=== PATIENT | male | born 2005 | race Caucasian/White ===

== ENCOUNTER 2025-05-13 16:37 | Emergency (ER) | payer OTHER, SELFPAY ==
[2025-05-13 16:45] VITALS: BP 106/75; PULSE 106; RESP 18; TEMP 36.3; O2SAT 98; BMI 25.0
--- NOTE | 2025-05-13 16:50 | CRLHL7_ITS ---
For Patients: As a result of the Cures Act, medical imaging exams and procedure reports are released immediately into your electronic medical record. You may view this report before your referring provider. If you have questions, please contact your health care provider. Indication: Right hand dislocation. Technique: Two views of the right hand. Comparison: None. Findings: Significant dislocation of the right MCP with the 1st proximal phalanx projecting radial. Displaced sesamoids. The thumb interphalangeal joint is unremarkable. The remainder of the right hand is unremarkable. Impression: 1. Dislocation of the right 1st metacarpophalangeal joint. Dictated by Rob Rios MD @ 05/13/2025 5:14:00 PM (Electronically Signed)
--- NOTE | 2025-05-13 17:02 | ED.GENADULT ---
HPI - General Adult General Date Seen: 05/13/25 Chief complaint: Extremity Pain/Injury, Upper Stated complaint: Right Hand Injury Time Seen by Provider: 05/13/25 17:02 History of Present Illness HPI narrative: Patient is a very pleasant 19-year-old here with his girlfriend after an injury he sustained when he ran into the wall while playing baseball. He injured his right thumb and it is notably deformed. He does not complain of numbness or other loss of function, no other injuries or complaints. General health is good. Related Data Home Medications ?Medication ?Instructions ?Recorded ?Confirmed No Known Home Medications 05/13/25 05/13/25 Allergies Allergy/AdvReac Type Severity Reaction Status Date / Time No Known Drug Allergies Allergy Verified 05/13/25 16:44 Exam Narrative: Exam Narrative: Vital signs reviewed In general, alert, nontoxic young man. Extremities: Examination of the right hand shows an obviously deformed thumb at the MCP joint with significant shortening. Distal CMS is intact. Const: Vital Signs, click to edit/add: Vital Signs - 24 hr 05/13/25 16:45 Temperature 97.3 F L Pulse Rate [Pulse Oximeter] 106 H Respiratory Rate 18 Blood Pressure [Le ft Upper Arm] 106/75 Pulse Oximetry 98 Oxygen Delivery Me thod Room Air Course Course ED Course: X-rays of the right hand by my review show a dislocation with significant shortening and overriding of the proximal phalanx over the metacarpal. No obvious fracture. Radiology report reviewed as well and they read this as a dislocation without fracture. Discussed options for him and trying to reduce this, we elected to put in a digital block which I did. He had good pain relief with that overall although not complete. I did end up giving him an additional 4 mg of IM morphine as well. I was not able to get enough traction to reduce the phalanx over the metacarpal. I did consult with Orthopedics, they felt that this likely was not reducible as a closed reduction and recommended consultation with a hand surgeon. I talked with [facility], orthopedics on-call there happens to be their hand surgeon and so they accepted him for transfer there to have him evaluated to decide whether open reduction is needed or whether they are able to manage this otherwise. Patient is here with his girlfriend and his girlfriend's mom, his mom is out of town. His girlfriend's mom will drive him up to [place] and they are comfortable with that plan. Offered splinting but he says he does not have any pain right now. Vital Signs Vital signs: Initial Vital Signs Temperature 97.3 F L 05/13/25 16:45 Temperature Source Temporal Artery Scan 05/13/25 16:45 Pulse Rate 106 H 05/13/25 16:45 Respiratory Rate 18 05/13/25 16:45 Blood Pressure 106/75 05/13/25 16:45 Blood Pressure Mean 85 05/13/25 16:45 Blood Pressure Position Sitting 05/13/25 16:45 Pulse Oximetry 98 05/13/25 16:45 Oxygen Delivery Method Room Air 05/13/25 16:45 Vital Signs Temperature 97.3 F L 05/13/25 16:45 Pulse Rate 106 H 05/13/25 16:45 Respiratory Rate 18 05/13/25 16:45 Blood Pressure 106/75 05/13/25 16:45 Pulse Oximetry 98 05/13/25 16:45 Oxygen Delivery Method Room Air 05/13/25 16:45 Temperature 97.3 F L 05/13/25 16:45 Pulse Rate 106 H 05/13/25 16:45 Respiratory Rate 18 05/13/25 16:45 Blood Pressure 106/75 05/13/25 16:45 Pulse Oximetry 98 05/13/25 16:45 Oxygen Delivery Method Room Air 05/13/25 16:45 Medications Administered Medications: Discontinued Medications Generic Name Dose Route Start Last Admin Trade Name Freq PRN Reason Stop Dose Admin Morphine Sulfate 4 mg 05/13/25 17:48 05/13/25 18:01 Morphine 4 Mg/Ml Inj IM 05/13/25 17:49 4 mg ONCE ONE Administration Discharge Plan Discharge Clinical Impression: Dislocation of finger Patient Disposition: Xfer Other Condition: Stable Instructions: Finger Dislocation (ED) Additional Instructions: [facility] is expecting you, they will evaluate an ask the orthopedic surgeon to consult. Prescriptions: No Action No Known Home Medications Stand Alone Forms: MyHealth Info Instructions
[2025-05-13] MEDS: MORPHINE 4 MG/ML INJ IM (18:01)
--- OUTSIDE RECORDS SUMMARY | 2025-05-13 19:09 | XMS_ITS | Clinical Summary ---
Author Organization [employer] [employer] [facility] [employer] Address [address] [place] [id number] Care Team Providers Care Mechanics Supervisor Name Role Phone Lucius Gentile MD Primary Care Provider [phone] Allergies No known active allergies Medications No known medications Active Problems Problem Noted Date Diagnosed Date VSD (ventricular septal defect) Overview (01/07/2013): very tiny, followed by cardiology. ~ see Dr. Nelson Consult note December 2009: Small apical, muscular VSD, no meds, no antibiotics needed. Follow up with Cardiology 2012. ~ Dr. Nelson Consult follow up December 2012: no further Cardiology follow up needed. Resolved Problems Problem Noted Date Diagnosed Date Resolved Date Body mass index (BMI) pediat brian, less than 5th percentile for age 0906/13/2011 12/04/2022 Overview (08/23/2017): Jul 2014: Body mass index is 14.75 kg/(m^2). Aug 2017: Body mass index is 16.89 kg/(m^2). 31 %ile based on CDC 2-20 Years BMI-for-age data using vitals from 08/23/2017. small ventricular septal defect 2010 Immunizations Immunization Administration Dates Next Due AMB Influenza, IIV3 (Age >=3 years)(Flu Clinic Only) 08/28/2008 DTaP 09/13/2006 [id number] (Pediarix) 2005,2005,1 10/14/2004 DTaP-IPV (Kinrix) 06/04/2009 HIB PRP-T (ActHIB,Hiberix) 09/13/2006,2005 ,2005 HPV 9 (Gardasil 9) 09/23/2018,08/23/2017 Hepatitis A (Peds) 06/04/2009,12/20/2006 Hepatitis B (Peds) 07/22/2015 Influenza, IIV3 (Age 6-35 mos) 11/01/2006,2005 Influenza, IIV3 (Age >=3 years) 12/11/2010 Influenza, IIV4 10/05/2022,,09/16/2020,10/02,09/23/2018,08/23/2017,08/17/2016 Influenza,LAIV4 Live Intrana ifeanyi (Flumist) 07/22/2015,07/19/2014,06/29/2013,06/23,09/16/2011 MENINGOCOCCAL VACCINE 2 VIAL [id number] (MENVEO) 10/09/2021,08/17/2016 MMR 06/04/2009 MMRV 06/24/2006 Meningococcal B 10/13/2024,05/01/2024 Pneumococcal conj 13-Valent (Prevnar 13) 06/04/2010 Pneumococcal conj 7-Valent (Prevnar 7) 1 2005,2005,2005,08/14 Tdap 08/23/2017 Varicella Vaccine 06/04/2009 Family History Medical History Relation Name Comments Other Father healthy Hypertension Maternal Grandmother Asthma Mother Relation Name Status Comments Brother Alive Father Alive Maternal Grandmother Mother Alive Social History Tobacco Use Types Packs/Day Years Used Date Smoking Tobacco: Never Smokeless Tobacco: Never Tobacco Cessation:Counseling Given: Yes Comments:non smoking home Alcohol Use Standard Drinks/Week Comments No 0 (1 standard drink = 0.6 oz pur e alcohol) PHQ-2 Answer Date Recorded PHQ-2 TOTAL SCORE 0 05/01/2024 Social Connections Answer Date Recorded Do you often feel lonely or isolated from those around you? 0 05/01/2024 Financial Resource Strain Answer Date R ecorded Difficulty of Paying Living Expenses 3 05/01/2024 Difficulty of Paying Living Expenses Not on file 05/01/2024 Food Insecurity Answer Date Recorded Do you worry your food will run out before you are able to buy more? 1 05/01/2024 Transportation Needs Answer Date Record ed Does lack of transportation keep you from medica l appointments? 1 05/01/2024 Does lack of transportation keep you from work, meetings or getting things that you need? 1 05/01/2024 Housing Stability Answer Date Recorded What is your housing situation today? 1 05/01/2024 Utilities Answer Date Recorded Do you have trouble paying f or utilities (for example, heat, electricity, water, phone)? 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 Gender Identity Not on file Sexual Orientation Not on file Obstetrics History Last Filed Vital Signs Vital Sign Reading Time Taken Comments Blood Pressure 108/72 05/01/2024 4:41 PM CDT Pulse 69 05/01/2024 3:50 PM CDT Temperature 37 C (98.6 F) 08/19/2012 11:22 AM PSYCH SPECIALIST Respiratory Rate 44 08/19/2012 11:2 2 AM PSYCH SPECIALIST Oxygen Saturation 97% 05/01/2024 3:50 PM CDT Inhaled Oxygen Concentration - - Weight 63.2 kg (139 lb 4.8 oz) 05/01/2024 3:50 P M CDT Height 173 cm (5' 8.11) 05/01/2024 3:50 PM CDT Body Mass Index 21.11 05/01/2024 3:50 PM CDT Body Mass Index Percentile 31.48% 05/01/2024 3:5 0 PM CDT Growth Chart: CDC (Boys, 2-2 0 Years) Plan of Treatment Upcoming Encounters Date Type Department Care Team (Late st Contact Info) Description 05/18/2025 9:05 AM CDT Office Visit [facility] [address] [place] [address] Lucius Gentile MD [address] [place] [address] Health Maintenance Due Date Last Done Comments Pneumococcal series for age 6-49 (2 of 2 - PPSV23) 2011 06/04/2010, 09/13/2006, 2005, Additional history exists HIV for age 15-65 2020 Hepatitis C screening for ag e 18-79 2023 COVID-19 vaccine series ( season) 2024 08/29/2022, 10/25/2021, 04/20/2021, Additional history exists BMI (ht and wt on same day) for age 18+ 05/01/2025 05/01/2024 Depression screening for age 12+ 05/01/2025 05/01/2024, 12/04/2022, 10/09/2021, Additional history exists Well Child Check for age 3-20 05/01/2025, 12/04/2022, 10/09/2021, Additional history exists Influenza Vaccine (#1) 2025 , 10/09/2021, 09/16/2020, Additional history exists Tetanus booster 08/23/2027 08/23/2017 Hepatitis B series for 19+ Completed 07/22, 2005, 2005, Additional history exists HPV series for age 9-26 Completed 09/23/2018, 08/23 Meningococcal series for age 11-21 Completed 2020, 08/17/2016 Insurance [place] [id number] [place] [id number] Care Teams Mechanics Supervisor Relationship Specialty Start Date End Date Lucius Gentile MD PCP - General 06/04/09
== END 2025-05-13 19:07 | disposition other institution (70) ==
LOC: ED 19:08
PROVIDERS: Emergency Provider Emergency Medicine; PCP Family Medicine
DX: S63.124A Dislocation of interphalangeal joint of right thumb, initial encounter (principal); W22.01XA Walked into wall, initial encounter; Y93.64 Activity, baseball
CPT/HCPCS: 73120; 94761; 96372; 99284; J2270